=== PATIENT | female | born 1990 | race Caucasian/White ===

== ENCOUNTER 2016-03-17 11:59 | Emergency (ER) | payer OTHER ==
[~2016-03-17] VITALS: Ht 167.6 cm; Wt 79.4 kg
[~2016-03-17 11:59] MED LIST: AMOXICILLIN500 M1 PO; FLEXERIL10 MG PO; MOTRIN800 MG PO; MUCINEX1200 MG PO; NAPROSYN500 M1 PO; NUVARING VAGIN1 EACH VG; TYLENOL #31 TAB PO
[2016-03-17] MEDS ORDERED: ESCITALOPRAM OXA5 MG PO (12:23)
[2016-03-17] MEDS ORDERED: AMOX-CLAV 875-1 EACH PO (12:23)
[2016-03-17 12:24] LABS: ABSOLUTE BASOPHIL COUNT 0 /CUMM (0.0-0.2); ABSOLUTE EOSINOPHIL COUNT 0.2 /CUMM (0.0-0.7); ABSOLUTE GRANULOCYTE CT 9.8 /CUMM (1.4-6.5); ABSOLUTE LYMPH COUNT 0.4 /CUMM (1.2-3.4); ABSOLUTE MONOCYTE COUNT 0.4 /CUMM (0.10-0.60); BASOPHIL % 0.1 % (0.0-2.0); EOSINOPHIL % 2.1 % (0-5); MEAN CORPUSCULAR HGB 29.2 PG (27.0-31.0); MEAN CORPUSCULAR HGB CONC 34.2 G/DL (33.0-37.0); MEAN CORPUSCULAR VOLUME 85.2 FL (81.0-99.0); MEAN PLATELET VOLUME 7.3 FL (7.4-10.4); RBC DISTRIBUTION WIDTH 13.1 % (11.5-14.5); RED BLOOD CELL CT 5.28 /CUMM (4.20-5.40); WHITE BLOOD CELL COUNT 10.9 /CUMM (4.8-10.8)
[2016-03-17 12:41] LABS: GRANULOCYTE % 90.3 % (42.2-75.2); PLATELET COUNT 344 /CUMM (130-400)
[2016-03-17 14:06] VITALS: BP 123/75
[2016-03-17] MEDS ORDERED: HYDROCODON-ACE1 EAC2 PO (14:36)
[2016-03-17] MEDS ORDERED: ZOFRAN ODT4 M1 SL (14:36)
[2016-03-17] MEDS ORDERED: BENTYL10 M1 PO (14:36)
--- NOTE | 2016-03-17 14:37 | ED GI/GU/ABDOMINAL COMPLAINT ---
History of Present Illness General Chief Complaint: Abdominal Pain/Flank Pain Stated Complaint: ABD PAIN NVD Source: patient Exam Limitations: no limitations Vital Signs & Intake/Output Vital Signs & Intake/Output ED Intake and Output 03/18 0000 03/17 1200 Intake Total 1000 Output Total 3 Balance 997 Intake, IV 1000 Output, Stool 2 Output, Urine 1 Patient 175 lb Weight Allergies Coded Allergies: apple (ANAPHYLAXIS 09/07/15) banana (ANAPHYLAXIS 09/07/15) Uncoded Allergies: PECTIN (ANAPHYLAXIS 09/07/15) Reconcile Medications Amoxicillin/Clavulanate Potass (Amox-Clav 875-125 MG Tablet) 875 MG-125 MG TABLET 1 TAB PO BID ANTIBIOTIC, INFECTION (Reported) Dicyclomine Hydrochloride (Bentyl) 10 MG CAPSULE 2 CAP PO TID ABD PAIN Escitalopram Oxalate 5 MG TABLET 1 TAB PO DAILY DEPRESSION (Reported) Etonogestrel/Ethinyl Estradiol (Nuvaring Vaginal Ring) 0.12 MG -0.015 MG/24 HR VAG.RING 1 EACH VG Q30D BC (Reported) use for 3 weeks, skip for 1 week Hydrocodone/Acetaminophen (Hydrocodon-Acetaminophen 5-325) 5 MG-325 MG TABLET 1-2 TAB PO Q4-6 PRN PRN PAIN Ondansetron (Zofran Odt) 4 MG TAB.RAPDIS 1 TAB SL TID NAUSEA Triage Note: PT6 STATES SHE WOKE THIS AM WITH VOMITING AND AND DIARRHEA. PT STATES SHE IS ON AUGMENTIN FOR SINUS INFECTION AND HAS NOT BEEN ABLE TO KEEP ANYTHING IN AND STATES SHE HAS SEVERE ABD CRAMPING. Triage Nurses Notes Reviewed? yes ? n Is pt currently ? No Onset: Abrupt Duration: hour(s):, constant Timing: recent history Location: generalized abdomen Radiation: no radiation No Modifying Factors: none HPI: 26-year-old female comes into emergency room with sudden onset nausea vomiting diarrhea and abdominal pain that began this morning. Symptoms have been persistent. Associated chills. Denies any urinary symptoms. Cramping sharp diffuse pain moderate to severe. Denies any other associated symptoms. (ED CASTILLO) Past History Travel History Traveled to [place] past 21 day No Medical History Any Pertinent Medical History? see below for history Neurological: NONE EENT: NONE Cardiovascular: NONE Respiratory: NONE Gastrointestinal: NONE Hepatic: NONE Renal: PYELONEPHRITIS Musculoskeletal: NONE Psychiatric: NONE Endocrine: NONE Blood Disorders: NONE Cancer(s): NONE SENIOR SOFTWARE DEVELOPMENT ENGINEER/Reproductive: PCOS ENDOMETRIOSIS, OVARIAN CYSTS Tetanus Vaccine: 02/20/12 Surgical History Surgical History: non-contributory Psychosocial History Who do you live with Mother What is your primary language Taiwanese Tobacco Use: Current Daily Use Daily Tobacco Use Amount/Type: => 5 Cigarettes daily ETOH Use: occasional use Illicit Drug Use: denies illicit drug use Family History Hx Contributory? No (ED CASTILLO) Review of Systems Review of Systems Constitutional: Reports: see HPI. EENTM: Reports: no symptoms. Respiratory: Reports: no symptoms. Cardiovascular: Reports: no symptoms. GI: Reports: see HPI. Genitourinary: Reports: no symptoms. Musculoskeletal: Reports: no symptoms. Skin: Reports: no symptoms. Neurological/Psychological: Reports: no symptoms. Hematologic/Endocrine: Reports: no symptoms. Immunologic/Allergic: Reports: no symptoms. All Other Systems: Reviewed and Negative (ED CASTILLO) Physical Exam Physical Exam General Appearance: well developed/nourished, no apparent distress, alert, awake Head: atraumatic, normal appearance Eyes: Bilateral: normal appearance, EOMI. Ears, Nose, Throat, Mouth: hearing grossly normal, moist mucous membrane Neck: normal inspection, full range of motion Respiratory: normal breath sounds, no respiratory distress Cardiovascular: regular rate/rhythm Gastrointestinal: normal bowel sounds, soft, tenderness, no guarding, no rebound tenderness Back: normal inspection Extremities: normal range of motion Neurologic/Psych: awake, alert, oriented x 3, normal gait, normal mood/affect Skin: intact, normal color Core Measures ACS in differential dx? No Severe Sepsis Present: No Septic Shock Present: No (ED CASTILLO) Progress Differential Diagnosis: AAA, appendicitis, biliary colic, bowel obstruction, cholecystitis, diverticulitis, ovarian cyst, ovarian torsion, pancreatitis, PID/ cervicitis, peptic ulcer, PUD/GERD, perforated viscous, SBO, threatened AB, UTI/ pyelo, gastroenteritis Plan of Care: Orders Procedure Date/time Status CULTURE,STOOL 03/17 1453 Active C.DIFFICILE 03/17 1453 Active Add-on Test (ER Only) 03/17 1232 Active LIPASE 03/17 1210 Complete AMYLASE 03/17 1210 Complete URINE 03/17 1205 Complete URINALYSIS 02/08 1205 Complete COMPREHENSIVE METABOLIC PANEL 03/17 1204 Complete CBC WITHOUT DIFFERENTIAL 03/17 1204 Complete Laboratory Tests 03/17/16 1224: Urinalysis LIGHT H, Urine Color YEL, Urine Clarity CLEAR, Urine pH 6.0, Ur Specific [place] >= 1.030, Urine Protein TRACE H, Urine Ketones TRACE H, Urine Nitrite NEG, Urine Bilirubin NEG, Urine Urobilinogen 0.2, Ur Leukocyte Esterase NEG, Ur Microscopic SEDIMENT EXAMINED, Urine RBC 10-15 H, Urine WBC 3-5 H, Ur Epithelial Cells MOD H, Hyaline Casts RARE H, Urine Mucus PACKD H, Urine Hemoglobin MOD H, Urine Glucose NEG, Urine Test NEGATIVE 03/17/16 1210: Anion Gap 15, Estimated GFR > 60, BUN/Creatinine Ratio 23.3, Glucose 104 H, Calcium 9.4, Total Bilirubin 0.8, AST 19, ALT 36, Alkaline Phosphatase 84, Total Protein 7.6, Albumin 4.6, Globulin 3.0, Albumin/Globulin Ratio 1.5, Amylase 65, Lipase 138, CBC w Diff NO MAN DIFF REQ, RBC 5.28, MCV 85.2, MCH 29.2, RDW 13.1, MPV 7.3 L, Gran % 90.3 H, Lymphocytes % 4.1 L, Monocytes % 3.4, Eosinophils % 2.1, Basophils % 0.1, Absolute Granulocytes 9.8 H, Absolute Lymphocytes 0.4 L, Absolute Monocytes 0.4, Absolute Eosinophils 0.2, Absolute Basophils 0, PUBS MCHC 34.2 Microbiology 03/17 1454 STOOL: Clostridium difficile Toxin A & B - RECD 03/17 1454 STOOL: Stool Culture - RECD Initial ED EKG: none (ED CASTILLO) Departure Departure Disposition: HOME OR SELF CARE Condition: Stable Clinical Impression Primary Impression: Gastroenteritis Referrals: KHURRAM RODRIGEZ,DMITRIY Kay (PCP/Family) Additional Instructions: Discontinue taking Augmentin. Clear liquid diet. Advance with brat diet. Take Vicodin and Bentyl and Zofran ODT as prescribed. Rest. Stay hydrated with plenty of fluids. Please go over all results of today's visit with your primary care doctor. Contact your primary care doctor to let them know you were here in the emergency room. There may be nonspecific findings which may not be related to your visit today here in the emergency room but may require further evaluation and chronic monitoring by your primary care doctor. If you had a laceration today the chance of foreign body always remains. You should follow-up with your primary care doctor for recheck in 3-5 days for a wound check. If you had an x-ray done there is a chance that a fracture could have been missed on initial read and you should follow-up with your primary care doctor for repeat x-rays if symptoms persist. If your blood pressure was elevated here in the emergency room please have rechecked by her primary care doctor within the next 48 hours by your primary care doctor. If you were prescribed a narcotic here in the emergency room or any type of controlled substances you're not allowed to drive while taking this medication or operate any type of heavy machinery. Narcotics can make you feel lightheaded dizziness nausea and can cause constipation. You may need to pick out hand a stool softener. Thank you for choosing [facility] emergency room. Please return to the emergency room immediately if you have any other concerns worsening of symptoms. Departure Forms: Customer Survey General Discharge Information Prescriptions: Current Visit Scripts Hydrocodone/Acetaminophen (Hydrocodon-Acetaminophen 5-325) 1-2 TAB PO Q4-6 PRN PRN PAIN #10 TAB Dicyclomine Hydrochloride (Bentyl) 2 CAP PO TID #30 CAP Ondansetron (Zofran Odt) 1 TAB SL TID #15 TAB Comments 03/17/2016 5:52:52 PM Patient was reevaluated multiple times. Symptoms continued to improve. Symptoms most consistent with gastroenteritis. Stool sample sent. At this time discussed holding off on CAT scan of abdomen and pelvis and patient agrees a plan of care. Patient will be treated symptomatically. Rest. Fluids. Return if any other concerns. (ED CASTILLO) PA/WORM PACKER Co-Sign Statement Statement: ED Attending supervision documentation- x I saw and evaluated the patient. I have also reviewed all the pertinent lab results and diagnostic results. I agree with the findings and the plan of care as documented in the PA's/WORM PACKER's documentation. [] I have reviewed the ED Record and agree with the PA's/WORM PACKER's documentation. [] Additions or exceptions (if any) to the PAs/WORM PACKER's note and plan are summarized below: [] (NELY RODRIGEZ,MARIZOL)
== END 2016-03-17 14:53 ==
LOC: ERH 11:59
PROVIDERS: Emergency Medicine
DX: K52.9 Noninfective gastroenteritis and colitis, unspecified (principal)
CPT/HCPCS: 81001; 81025; 87045; 96361; 96374; 96375; J2405

== ENCOUNTER 2016-06-03 19:07 | Emergency (ER) | payer OTHER ==
[~2016-06-03] VITALS: Ht 167.6 cm; Wt 78.0 kg
[~2016-06-03 19:07] MED LIST changes: +AMOX-CLAV 875-1 EACH PO; +BENTYL10 M1 PO; +ESCITALOPRAM OXA5 MG PO; +HYDROCODON-ACE1 EAC2 PO; +ZOFRAN ODT4 M1 SL
[2016-06-03] MEDS ORDERED: MULTI-DAY VITA1 EACH PO (20:00)
--- NOTE | 2016-06-03 20:36 | ED GI/GU/ABDOMINAL COMPLAINT ---
History of Present Illness General Chief Complaint: General Adult Stated Complaint: PT HAS PAINS ON THE LEFT SIDE Source: patient Exam Limitations: no limitations Vital Signs & Intake/Output Vital Signs & Intake/Output Vital Signs Date Time Temp Pulse Resp B/P B/P Pulse O2 O2 Flow FiO2 Mean Ox Delivery Rate 06/04 2235 98.1 84 20 140/84 97 Room Air 06/03 1914 98.7 93 18 157/99 98 Room Air Allergies Coded Allergies: apple (ANAPHYLAXIS 09/07/15) banana (ANAPHYLAXIS 09/07/15) amoxicillin (From AUGMENTIN) (STOMACH PAINS 06/03/16) clavulanic acid (From AUGMENTIN) (STOMACH PAINS 06/03/16) Uncoded Allergies: PECTIN (ANAPHYLAXIS 09/07/15) Reconcile Medications Cyclobenzaprine HCl 5 MG TABLET 1 TAB PO TIDPRN PRN MUSCLE RELAXATION Escitalopram Oxalate 5 MG TABLET 1 TAB PO DAILY DEPRESSION (Reported) Etonogestrel/Ethinyl Estradiol (Nuvaring Vaginal Ring) 0.12 MG -0.015 MG/24 HR VAG.RING 1 EACH VG Q30D BC (Reported) use for 3 weeks, skip for 1 week Multivitamin (Multi-Day Vitamins) 1 EACH TABLET 1 TAB PO DAILY SUPPLEMENT ( Reported) Triage Note: PT TO ED C/O LEFT LOW BACK THAT WRAPS TO LLQ AND SHOOTS DOWN LEFT LEG, GETTING WORS ETHIS AFTERNOON. PT STATES SHE ACCIDENTALY LEFT A "TAMPON IN FOR A WEEK" C/O URINARY FREQUENCY. PMH OF PYLONEPHRITIS W/O UTI S/S. Triage Nurses Notes Reviewed? yes ? N Is pt currently ? No HPI: This patient is a 26-year-old female who presented to the emergency department today for evaluation of left flank pain. The patient reported that approximately 3 or 4 days ago she realized that she had left her tampon in for about 6 or 7 days. At that time she took it out when she was putting her NuvaRing in. The patient reported that today she developed an itchy throat, left flank pain that radiates to her left groin and down her left thigh, had 2 episodes of nonbloody diarrhea, and 2 episodes of hematuria. The patient denied any urinary burning, urgency, or frequency. She denied any fevers, chills, chest pain, difficulty breathing, abdominal pain, nausea, or vomiting. This patient does have a history of multiple kidney infections. ([place] ARBOLEDA PA-C) Past History Travel History Traveled to [place] past 21 day No Medical History Any Pertinent Medical History? see below for history Neurological: NONE EENT: NONE Cardiovascular: NONE Respiratory: NONE Gastrointestinal: NONE Hepatic: NONE Renal: PYELONEPHRITIS Musculoskeletal: NONE Psychiatric: NONE Endocrine: NONE Blood Disorders: NONE Cancer(s): NONE RECEPTIONIST/TELEPHONE OPERATOR/Reproductive: PCOS ENDOMETRIOSIS, OVARIAN CYSTS Tetanus Vaccine: 02/20/12 Surgical History Surgical History: non-contributory Psychosocial History Who do you live with Mother What is your primary language Swedish Tobacco Use: Current Daily Use Daily Tobacco Use Amount/Type: => 5 Cigarettes daily ETOH Use: occasional use Illicit Drug Use: denies illicit drug use Family History Hx Contributory? No ([place] ARBOLEDA PA-C) Review of Systems Review of Systems Constitutional: Reports: no symptoms. EENTM: Reports: no symptoms. Respiratory: Reports: no symptoms. Cardiovascular: Reports: no symptoms. GI: Reports: see HPI. Genitourinary: Reports: see HPI. Musculoskeletal: Reports: see HPI. Skin: Reports: no symptoms. Neurological/Psychological: Reports: no symptoms. All Other Systems: Reviewed and Negative ([place] ARBOLEDA PA-C) Physical Exam Physical Exam Gastrointestinal: normal bowel sounds, soft, non-tender, no organomegaly, NO REBOUND OR GUARDING. nO PERITONEAL SIGNS. nONDISTENDED Comments: Well-developed well-nourished person in no acute distress HEENT: Normal EENT exam, head normocephalic, moist mucous membranes Pupils equally round and reactive to light. Pharynx normal. No swelling or edema. Neck: Supple, no lymphadenopathy Back: Normal inspection. No midline tenderness. Left-sided CVA tenderness Cardiovascular: Regular rate and rhythm with no murmurs, rubs, or gallops Respiratory: Chest nontender. No respiratory distress. Breath sounds clear to auscultation bilaterally Extremity: Normal and equal pulses Neuro: Alert oriented x3, cranial nerves II through XII grossly intact. Skin: No appreciable rash on exposed skin, skin is warm and dry. Psych: Mood and affect is normal Core Measures ACS in differential dx? No Severe Sepsis Present: No Septic Shock Present: No ([place] ARBOLEDA PA-C) Progress Differential Diagnosis: appendicitis, biliary colic, bowel obstruction, colon cancer, cholecystitis, diverticulitis, ectopic , endometritis, gastritis, hepatitis, hernia, ischemic bowel, inflamm bowel dis, intrauterine , kidney stone, ovarian cyst, ovarian torsion, pancreatitis, PID/ cervicitis, perforated viscous, threatened AB, UTI/pyelo, TOXIC SHOCK SYNDROME Diagnostic Imaging: Viewed by Me: CT Scan. Discussed w/RAD: CT Scan. Radiology Impression: PATIENT: ANGELINE GLEASON PRESENT AGE: 26 PATIENT ACCOUNT NO: [id number] : 90 LOCATION: [facility] ORDERING PHYSICIAN: [place] ARBOLEDA PA-C SERVICE DATE: 06/03/16 EXAM TYPE: CAT - CT ABD & PELVIS W IV CONTRAST EXAMINATION: CT ABDOMEN AND PELVIS WITH CONTRAST CLINICAL INFORMATION: Left lower quadrant pain COMPARISON: CT scan abdomen pelvis 03/18/2010 TECHNIQUE: Multidetector volumetric imaging was performed of the abdomen and pelvis before and after the IV administration of 95 mL of Optiray 320 intravenous contrast. Sagittal and coronal reformatted images were obtained on the technologist's workstation. DLP: 359.34 mGy-cm FINDINGS: LUNG BASES: The visualized lung bases are unremarkable. LIVER, GALLBLADDER, AND BILIARY TREE: The liver is normal in size, shape, and attenuation. No focal hepatic lesion or biliary ductal dilatation is present. The gallbladder is unremarkable with no evidence of radiopaque gallstones, gallbladder wall thickening, or obvious pericholecystic inflammatory changes. PANCREAS: Unremarkable. SPLEEN: Unremarkable. ADRENAL GLANDS: Unremarkable. KIDNEYS AND URETERS: The kidneys are normal in size, shape, and attenuation. No hydronephrosis, hydroureter, or calculi seen. No perinephric stranding. BLADDER: Unremarkable. GASTROINTESTINAL TRACT: The small and large bowel are unremarkable. The appendix is unremarkable. ABDOMINAL WALL: No significant hernia is appreciated. LYMPH NODES: Normal. VASCULAR: Unremarkable. PELVIC VISCERA: Unremarkable. OSSEOUS STRUCTURES: Unremarkable. IMPRESSION: No significant abnormality. DICTATED BY: BELINDA JUSTICE MD DATE/TIME DICTATED:2238 RN COMMUNITY:ESTER DATE/TIME TRANSCRIBED:06/03/162238 CONFIDENTIAL, DO NOT COPY WITHOUT APPROPRIATE AUTHORIZATION. <Electronically signed in Other Vendor System> SIGNED BY: BELINDA JUSTICE MD 06/03/16 8512 Initial ED EKG: none (NKECHI LEMUS,[place]) Plan of Care: Orders Procedure Date/time Status LACTIC ACID 06/03 2314 Active BLOOD CULTURE 06/03 2014 Active LACTIC ACID 06/03 2014 Complete COMPREHENSIVE METABOLIC PANEL 06/03 2014 Complete CBC WITHOUT DIFFERENTIAL 06/03 2014 Complete CULTURE,URINE 06/04 1919 Active URINE 06/04 1919 Complete URINALYSIS 06/04 1919 Complete Laboratory Tests 06/03/162031: Anion Gap 11, Estimated GFR > 60, BUN/Creatinine Ratio 18.0, Glucose 87, Lactic Acid 1.7, Calcium 9.7, Total Bilirubin 0.3, AST 24, ALT 41, Alkaline Phosphatase 66, Total Protein 7.1, Albumin 4.2, Globulin 2.9, Albumin/Globulin Ratio 1.4, CBC w Diff NO MAN DIFF REQ, RBC 4.55, MCV 87.3, MCH 29.7, RDW 13.6, MPV 7.6, Gran % 65.9, Lymphocytes % 23.1, Monocytes % 6.6, Eosinophils % 3.5, Basophils % 0.9, Absolute Granulocytes 6.9 H, Absolute Lymphocytes 2.4, Absolute Monocytes 0.7 H, Absolute Eosinophils 0.4, Absolute Basophils 0.1, PUBS MCHC 34.0 06/03/161935: Urine Color YEL, Urine Clarity CLEAR, Urine pH 6.5, Ur Specific [place] 1.020, Urine Protein NEG, Urine Ketones NEG, Urine Nitrite NEG, Urine Bilirubin NEG, Urine Urobilinogen 0.2, Ur Leukocyte Esterase NEG, Ur Microscopic SEDIMENT EXAMINED, Urine RBC RARE, Urine WBC RARE, Ur Epithelial Cells FEW, Urine Bacteria RARE H, Urine Hemoglobin SMALL H, Urine Glucose NEG, Urine Test NEGATIVE Microbiology 06/03 2040 BLOOD: Blood Culture - RECD 06/04 2031 BLOOD: Blood Culture - RECD 06/04 1935 URINE ROUT: Urine Culture - RECD Departure Departure Disposition: HOME OR SELF CARE Condition: Stable Clinical Impression Primary Impression: Viral syndrome Referrals: KHURRAM RODRIGEZ,DMITRIY Kay (PCP/Family) Additional Instructions: Please follow-up with your primary care physician. Be sure to stay hydrated. [id number] Motrin and Tylenol for pain and inflammation. Return for any worsening symptoms or concerns. Departure Forms: Customer Survey General Discharge Information Prescriptions: Current Visit Scripts Cyclobenzaprine HCl 1 TAB PO TIDPRN PRN MUSCLE RELAXATION #10 TAB (NKECHI LEMUS,[place]) PA/SECURITY GUARD DISPATCHER Co-Sign Statement Statement: ED Attending supervision documentation- [] I saw and evaluated the patient. I have also reviewed all the pertinent lab results and diagnostic results. I agree with the findings and the plan of care as documented in the PA's/SECURITY GUARD DISPATCHER's documentation. x I have reviewed the ED Record and agree with the PA's/SECURITY GUARD DISPATCHER's documentation. [] Additions or exceptions (if any) to the PAs/SECURITY GUARD DISPATCHER's note and plan are summarized below: [] (NELY RODRIGEZ,MARIZOL)
[2016-06-03 20:59] LABS: ABSOLUTE BASOPHIL COUNT 0.1 /CUMM (0.0-0.2); ABSOLUTE EOSINOPHIL COUNT 0.4 /CUMM (0.0-0.7); ABSOLUTE GRANULOCYTE CT 6.9 /CUMM (1.4-6.5); ABSOLUTE LYMPH COUNT 2.4 /CUMM (1.2-3.4); ABSOLUTE MONOCYTE COUNT 0.7 /CUMM (0.10-0.60); BASOPHIL % 0.9 % (0.0-2.0); EOSINOPHIL % 3.5 % (0-5); GRANULOCYTE % 65.9 % (42.2-75.2); HEMATOCRIT 39.8 % (37-47); MEAN CORPUSCULAR HGB 29.7 PG (27.0-31.0); MEAN CORPUSCULAR VOLUME 87.3 FL (81.0-99.0); MEAN PLATELET VOLUME 7.6 FL (7.4-10.4); PLATELET COUNT 327 /CUMM (130-400); RBC DISTRIBUTION WIDTH 13.6 % (11.5-14.5); RED BLOOD CELL CT 4.55 /CUMM (4.20-5.40); WHITE BLOOD CELL COUNT 10.4 /CUMM (4.8-10.8)
[2016-06-03 22:36] VITALS: BP 140/84
--- NOTE | 2016-06-03 22:47 | CT SCAN REPORT ---
EXAMINATION: CT ABDOMEN AND PELVIS WITH CONTRAST CLINICAL INFORMATION: Left lower quadrant pain COMPARISON: CT scan abdomen pelvis 03/18/2010 TECHNIQUE: Multidetector volumetric imaging was performed of the abdomen and pelvis before and after the IV administration of 95 mL of Optiray 320 intravenous contrast. Sagittal and coronal reformatted images were obtained on the technologist's workstation. DLP: 359.34 mGy-cm FINDINGS: LUNG BASES: The visualized lung bases are unremarkable. LIVER, GALLBLADDER, AND BILIARY TREE: The liver is normal in size, shape, and attenuation. No focal hepatic lesion or biliary ductal dilatation is present. The gallbladder is unremarkable with no evidence of radiopaque gallstones, gallbladder wall thickening, or obvious pericholecystic inflammatory changes. PANCREAS: Unremarkable. SPLEEN: Unremarkable. ADRENAL GLANDS: Unremarkable. KIDNEYS AND URETERS: The kidneys are normal in size, shape, and attenuation. No hydronephrosis, hydroureter, or calculi seen. No perinephric stranding. BLADDER: Unremarkable. GASTROINTESTINAL TRACT: The small and large bowel are unremarkable. The appendix is unremarkable. ABDOMINAL WALL: No significant hernia is appreciated. LYMPH NODES: Normal. VASCULAR: Unremarkable. PELVIC VISCERA: Unremarkable. OSSEOUS STRUCTURES: Unremarkable. IMPRESSION: No significant abnormality.
[2016-06-03] MEDS ORDERED: CYCLOBENZAPRINE5 M2 PO (22:54)
== END 2016-06-03 23:03 ==
LOC: ERH 19:07
PROVIDERS: Physician Assistant
DX: B34.9 Viral infection, unspecified (principal); R19.7 Diarrhea, unspecified; R31.9 Hematuria, unspecified
CPT/HCPCS: 74177; 81001; 81025; 87040; 87086; 96374; 96375; J1885; J2405

== ENCOUNTER 2017-07-13 17:33 | Emergency (ER) | payer OTHER ==
[~2017-07-13] VITALS: Ht 167.6 cm; Wt 84.4 kg
[~2017-07-13 17:33] MED LIST changes: +CYCLOBENZAPRINE5 M2 PO; +MULTI-DAY VITA1 EACH PO
[2017-07-13 17:38] VITALS: BP 144/87
--- NOTE | 2017-07-13 17:55 | ED UPPER/LOWER EXTREMITY COMPL ---
History of Present Illness General Chief Complaint: Upper Extremity Problem Stated Complaint: PT LT FOREARM IS SWOLLEN Source: patient Exam Limitations: no limitations Vital Signs & Intake/Output Vital Signs & Intake/Output Vital Signs Date Time Temp Pulse Resp B/P B/P Pulse O2 O2 Flow FiO2 Mean Ox Delivery Rate 07/13 1738 96.9 102 15 144/87 100 Room Air Room Air Allergies Coded Allergies: apple (ANAPHYLAXIS 07/13/17) banana (ANAPHYLAXIS 07/13/17) amoxicillin (From AUGMENTIN) (STOMACH PAINS 07/13/17) clavulanic acid (From AUGMENTIN) (STOMACH PAINS 07/13/17) Uncoded Allergies: PECTIN (ANAPHYLAXIS 09/07/15) Triage Note: PT TO ED FOR C/C OF L WRIST PAIN. PT REPORTS SHE HAD AN IV IN HER HAND A FEW DAYS AGO AND PAIN AND SWELLING IS NOW PROXIMAL TO WHERE IV WAS. PT DENIES SOB. Triage Nurses Notes Reviewed? yes Onset: Gradual Duration: day(s): Timing: recent history Severity: moderate Pain/Injury Location: Left: Forearm. : No Patient currently breastfeeds: No HPI: 27yo female presents to ED complaining of painful swollen lump to left forearm for the past few days. Patient had an IV in her left hand for IV fluids to treat dehydration at [facility] a few days ago, prior to onset of swelling. Patient's aunt is a nurse, she recommended the patient come to ED for evaluation ultrasound for possible blood clot. The patient denies trauma or injury to this area. (Norma LINDSEY,Angeline Eastman) Reconcile Medications Escitalopram Oxalate 5 MG TABLET 1 TAB PO DAILY DEPRESSION (Reported) Etonogestrel/Ethinyl Estradiol (Nuvaring Vaginal Ring) 0.12 MG -0.015 MG/24 HR VAG.RING 1 EACH VG Q30D BC (Reported) use for 3 weeks, skip for 1 week Metoclopramide HCl (Reglan) 10 MG TABLET 1 TAB PO 4 TIMES/DAY nausea 30 minutes before meals and bedtime Ondansetron (Zofran Odt) 4 MG TAB.RAPDIS 1 TAB SL TID nausea (Damian Vaughn DO) Past History Travel History Traveled to [place] past 21 day No Medical History Any Pertinent Medical History? see below for history Neurological: NONE EENT: NONE Cardiovascular: NONE Respiratory: NONE Gastrointestinal: NONE Hepatic: NONE Renal: PYELONEPHRITIS Musculoskeletal: NONE Psychiatric: NONE Endocrine: NONE Blood Disorders: NONE Cancer(s): NONE GLASS INSERTER/Reproductive: PCOS ENDOMETRIOSIS, OVARIAN CYSTS Tetanus Vaccine: 02/20/12 Surgical History Surgical History: non-contributory Psychosocial History Who do you live with Mother What is your primary language Ukrainian Tobacco Use: Current Daily Use Daily Tobacco Use Amount/Type: => 5 Cigarettes daily ETOH Use: occasional use Illicit Drug Use: denies illicit drug use Family History Hx Contributory? No (Angeline Singh) Review of Systems Review of Systems Constitutional: Reports: no symptoms. EENTM: Reports: no symptoms. Respiratory: Reports: no symptoms. Cardiovascular: Reports: no symptoms. Gastrointestinal/Abdominal: Reports: no symptoms. Genitourinary: Reports: no symptoms. Musculoskeletal: Reports: see HPI. Skin: Reports: no symptoms. Neurological/Psychological: Reports: no symptoms. Hematologic/Endocrine: Reports: no symptoms. Immunological: Reports: no symptoms. All Other Systems: Reviewed and Negative (Angeline Singh) Physical Exam Physical Exam General Appearance: well developed/nourished, no apparent distress, alert, awake Head: atraumatic, normal appearance Eyes: Bilateral: normal appearance. Ears, Nose, Throat: hearing grossly normal Neck: normal inspection, supple, full range of motion Cardiovascular/Respiratory: normal peripheral pulses, no respiratory distress Peripheral Pulses: 2+ radial (L) Back: normal inspection, normal range of motion Shoulder Left: normal range of motion, normal inspection Shoulder Right: normal range of motion, normal inspection Elbow Left: normal range of motion, normal inspection Elbow Right: normal range of motion, normal inspection Hand Left: area of swelling and tenderness to distal posterior forearm, no erythema, fluctuance, warmth Hand Right: normal inspection, normal range of motion Neurologic/Tendon: normal sensation, normal motor functions, normal tendon functions Skin: intact, normal color, warm/dry (Angeline Singh) Progress Differential Diagnosis: cellulitis, DVT, abscess, SUPERFICIAL THROMBOPHLEBITIS Plan of Care: Orders Procedure Date/time Status US-DUPLEX VENOUS EXTREM UNI 07/13 9657 Active Ultrasound shows superficial thrombophlebitis however no DVT. Patient to begin therapy to help with her symptoms. Patient will follow-up with her primary care doctor regarding this finding. Patient placed in Jose wrap for compression and comfort. Patient in no acute distress, vital signs are stable. The patient agrees with the plan of care. The patient was discussed with Dr. Vaughn who agrees with the plan of care. Diagnostic Imaging: Viewed by Me: Ultrasound. Discussed w/RAD: Ultrasound. Radiology Impression: PATIENT: ANGELINE GLEASON PRESENT AGE: 27 PATIENT ACCOUNT NO: [id number] : 90 LOCATION: [facility] ORDERING PHYSICIAN: Angeline LINDSEY SERVICE DATE: 07/13/17 EXAM TYPE: US - US-DUPLEX VENOUS EXTREM UNI EXAMINATION: DOPPLER VENOUS ULTRASOUND UPPER EXTREMITY, LEFT CLINICAL INFORMATION: 27-year-old woman with swelling post IV placement. COMPARISON: None. TECHNIQUE: Grayscale, Doppler and spectral analysis of the upper extremity and neck was performed. FINDINGS: There is no evidence for a deep venous thrombosis within the visualized upper extremity and neck veins. There is normal flow, compression and augmentation. However, there is thrombophlebitis of a superficial branch of the cephalic vein the posterior aspect of the wrist near the region of pain and swelling. In addition, there is a small wrist effusion. IMPRESSION: No evidence of deep venous thrombosis. Superficial thrombophlebitis near the region of pain involving a superficial branch of the left cephalic vein. Small wrist effusion. DICTATED BY: Ramonita Navarro MD DATE/TIME DICTATED:07/13/171908 SALES PROJECT MANAGER:ESTER DATE/TIME TRANSCRIBED:07/13/171908 CONFIDENTIAL, DO NOT COPY WITHOUT APPROPRIATE AUTHORIZATION. <Electronically signed in Other Vendor System> SIGNED BY: Ramonita Navarro MD 07/13/171915 (Norma LINDSEY,Angeline Eastman) Departure Departure Disposition: HOME OR SELF CARE Condition: Stable Clinical Impression Primary Impression: Superficial thrombophlebitis Qualifiers: Superficial thrombophlebitis-Involved body area: upper extremity Laterality: left Qualified Code: I80.8 - Phlebitis and thrombophlebitis of other sites Referrals: Michael RODRIGEZ,Kody Kay (PCP/Family) Additional Instructions: Begin ibuprofen 800 mg 3 times a day for 7 days. Follow-up with your primary care doctor. Return with worsening symptoms or concerns. Please note that there might be incidental findings in your evaluation that are unrelated to the current emergency department visit. Please notify your primary care doctor about this emergency department visit in order to obtain and review all of the testing performed so that these incidental findings can be monitored as needed. If you had an x-ray performed, please understand that some fractures may not be seen on the initial set of x-rays. If your symptoms persist you might need a repeat set of x-rays to check for such a fracture. If you had a laceration evaluated, please understand that foreign bodies such as glass or wood may not be visible to the naked eye or on plain x-rays. If the wound becomes red, swollen, increasingly more painful or if there is any drainage from the wound, please have it reevaluated by a physician for the possibility of a retained foreign body. If you're unable to follow up as outlined in the discharge instructions please return to the emergency department. Thank you for choosing the [facility] Emergency Department for your care. It was a pleasure to serve you today. Departure Forms: Customer Survey General Discharge Information (Norma LINDSEY,Angeline Eastman) PA/PERFORMING ARTS RO[address] MANAGER Co-Sign Statement Statement: ED Attending supervision documentation- [] I saw and evaluated the patient. I have also reviewed all the pertinent lab results and diagnostic results. I agree with the findings and the plan of care as documented in the PA's/PERFORMING ARTS RO[address] MANAGER's documentation. [x] I have reviewed the ED Record and agree with the PA's/PERFORMING ARTS RO[address] MANAGER's documentation. [] Additions or exceptions (if any) to the PAs/PERFORMING ARTS RO[address] MANAGER's note and plan are summarized below: [] (Damian Vaughn DO)
--- NOTE | 2017-07-13 19:16 | ULTRASOUND REPORT ---
EXAMINATION: DOPPLER VENOUS ULTRASOUND UPPER EXTREMITY, LEFT CLINICAL INFORMATION: 27-year-old woman with swelling post IV placement. COMPARISON: None. TECHNIQUE: Grayscale, Doppler and spectral analysis of the upper extremity and neck was performed. FINDINGS: There is no evidence for a deep venous thrombosis within the visualized upper extremity and neck veins. There is normal flow, compression and augmentation. However, there is thrombophlebitis of a superficial branch of the cephalic vein the posterior aspect of the wrist near the region of pain and swelling. In addition, there is a small wrist effusion. IMPRESSION: No evidence of deep venous thrombosis. Superficial thrombophlebitis near the region of pain involving a superficial branch of the left cephalic vein. Small wrist effusion.
[2017-07-13] MEDS ORDERED: IBUPROFEN800 M1 PO (19:37)
[2017-07-18] MEDS ORDERED: ZOFRAN ODT4 M1 SL (14:04)
[2017-07-18] MEDS ORDERED: REGLAN10 M1 PO (14:04)
== END 2017-07-13 19:38 ==
LOC: ERH 17:33
DX: I80.8 Phlebitis and thrombophlebitis of other sites (principal)